=== PATIENT | male | born 1955 | race Caucasian/White ===

== ENCOUNTER 2016-07-30 13:52 | Inpatient (IN) | payer OTHER ==
[~2016-07-30] VITALS: Ht 190.5 cm; Wt 113.0 kg
[2016-07-30] MEDS ORDERED: ZESTRIL/PRINIVI10 MG PO (18:32)
[2016-07-30] MEDS ORDERED: ASPIRIN EC81 MG PO (18:32)
[2016-07-31 11:54] LABS: HEMOGLOBIN 14.4 gm/dl (14.0-17.5); RED BLOOD COUNT 4.84 M/UL (4.20-5.50); WHITE BLOOD COUNT 8.8 K/UL (4.5-11.0)
[2016-07-31 12:08] LABS: BUN/CREATININE RATIO 15 (0-10)
[2016-08-01 04:06] LABS: BUN/CREATININE RATIO 19 (0-10)
[2016-08-01] MEDS ORDERED: ELIQUIS 5 MG TAB5 MG PO (13:13)
[2016-08-01] MEDS ORDERED: LOPRESSOR 25 MG25 MG PO (13:14)
[2016-08-01] MEDS ORDERED: GLUCOPHAGE 500500 MG PO (13:15)
== END 2016-08-01 13:53 | disposition home or self-care (01) | DRG 274 ==
LOC: CCU 13:52
PROVIDERS: Internal Medicine; ADMIT Internal Medicine
PROC: 02583ZZ Destruction of Conduction Mechanism, Percutaneous Approach (ICD-10-PCS; principal; 2016-07-31)
PROC: 02K83ZZ Map Conduction Mechanism, Percutaneous Approach (ICD-10-PCS; 2016-07-31)
PROC: 4A023FZ Measurement of Cardiac Rhythm, Percutaneous Approach (ICD-10-PCS; 2016-07-31)
PROC: 4A0234Z Measurement of Cardiac Electrical Activity, Percutaneous Approach (ICD-10-PCS; 2016-07-31)
DX: I48.92 Unspecified atrial flutter (principal); I49.5 Sick sinus syndrome; I48.91 Unspecified atrial fibrillation; E11.9 Type 2 diabetes mellitus without complications; I10 Essential (primary) hypertension; K40.90 Unilateral inguinal hernia, without obstruction or gangrene, not specified as recurrent; G47.33 Obstructive sleep apnea (adult) (pediatric); Z72.0 Tobacco use; Z79.82 Long term (current) use of aspirin; Z79.899 Other long term (current) drug therapy; Z82.49 Family history of ischemic heart disease and other diseases of the circulatory system
CPT/HCPCS: 36415; 80048; 82962; 83735; 85027; 85730; 93005; 93609; 93621; 93623; 93655; C1730; C1733; C1766; J0461; J1200; J1644; J2250; J3010; J7040; J7050

== ENCOUNTER → 2020-08-22 | Outpatient (CLI) | payer OTHER ==
[~2020-08-22] MED LIST: ASPIRIN EC81 MG PO; COZAAR50 MG PO; ELIQUIS 5 MG TAB5 MG PO; GLUCOPHAGE 500500 MG PO; LIPITOR TAB 1010 MG PO; LOPRESSOR50 MG PO; MULTAQ 400 MG400 MG PO; NORVASC 5 MG TAB5 MG PO; ZESTRIL/PRINIVI10 MG PO
== END ==
LOC: HEART 5 15:23
DX: R01.1 Cardiac murmur, unspecified (principal); R06.02 Shortness of breath; I08.3 Combined rheumatic disorders of mitral, aortic and tricuspid valves
CPT/HCPCS: 93306